=== PATIENT | male | born 1970 | race Caucasian/White ===

== ENCOUNTER 2016-09-11 09:01 | Inpatient (IN) | payer BC, OTHER ==
[~2016-09-11] VITALS: Ht 185.4 cm; Wt 92.0 kg
[2016-09-11] VITALS (16 sets, daily range): BP systolic 133–161; BP diastolic 76–100; PULSE 62–97; RESP 14–20; Ht 185.4 cm; Wt 92.0 kg
[~2016-09-11 09:01] MED LIST: CEFAZOLIN 1 GM INJ ONE; EPHEDrine SULFATE 50 MG/5 ML SYG ONE; SUCCINYLCHOLINE CHLORIDE 100 MG/5 ML SYG IV ONE
[2016-09-11] MEDS ORDERED: PROPOFOL 20 ML ONE (09:20)
[2016-09-11] MEDS ORDERED: NEOSTIGMINE 3 MG/3 ML SYRINGE ONE (09:20)
[2016-09-11] MEDS ORDERED: MIDAZOLAM 1 MG/ML 2 ML INJ ONE ×2 (09:20→17:01)
[2016-09-11] MEDS ORDERED: ROCURONIUM 50 MG INJ ONE (09:20)
[2016-09-11] MEDS ORDERED: GLYCOPYRROLATE 1 MG INJ ONE (09:20)
[2016-09-11] MEDS ORDERED: LIDOCAINE 2% (SDV) 5 ML INJ ONE (09:20)
[2016-09-11] MEDS ORDERED: FENTAnyl 50 MCG/ML VIAL ONE ×2 (09:20→17:33)
[2016-09-11] MEDS ORDERED: NALOXONE (0.4 MG/ML) INJ ONE (10:20)
--- NOTE | 2016-09-11 11:25 | HPN ---
Date/Time of Note Date/Time of Note DATE: 09/11/16 TIME: 11:25 Interval H&P Admission Note Pt. seen H&P reviewed: No system changes ( ) COLLIN PHILLIPS MD Sep 11, 2016 11:25
[2016-09-11] MEDS ORDERED: CEFAZOLIN 2 GM/50 ML (PMX) 50 ML IVPB SCH (11:30)
[2016-09-11] MEDS ORDERED: LACTATED RINGER'S 1,000 ML IV* SCH (11:30)
[2016-09-11] MEDS ORDERED: BUPIVACAINE 0.25%/EPI (SDV) 30 ML INJ ONE (11:52)
[2016-09-11] MEDS ORDERED: GELATIN SIZE 100 SPONGE ONE (11:52)
[2016-09-11] MEDS ORDERED: BUPIVACAINE 0.25% (MPF) 30 ML INJ ONE (11:52)
[2016-09-11] MEDS ORDERED: THROMBIN 5000 UNIT VIAL ONE (11:53)
[2016-09-11] MEDS ORDERED: BUPIVACAINE 0.25%/EPI (SDV) 30 ML INJ INJ ONE (13:32)
[2016-09-11] MEDS ORDERED: ONDANSETRON 4 MG INJ ONE (13:39)
[2016-09-11] MEDS ORDERED: DEXAMETHASONE 4 MG/ML 1 ML INJ ONE (13:39)
[2016-09-11] MEDS ORDERED: SURGIFOAM POWDER 1 GM KIT ONE (14:33)
[2016-09-11] MEDS ORDERED: THROMBIN 5000 UNIT VIAL TOP ONE (14:43)
[2016-09-11] MEDS ORDERED: GABA-526 PO (17:07)
[2016-09-11] MEDS ORDERED: BACL10TA PO (17:07)
[2016-09-11] MEDS ORDERED: PROP20TA4 PO (17:07)
[2016-09-11] MEDS ORDERED: CLON1TAB3 PO (17:07)
[2016-09-11] MEDS ORDERED: SUMA100T4 PO (17:12)
[2016-09-11] MEDS ORDERED: TOPI-25 PO (17:12)
[2016-09-11] MEDS ORDERED: SERT100T PO (17:12)
[2016-09-11] MEDS ORDERED: ACETAMINOPHEN 325 MG TAB PO PRN (17:30)
[2016-09-11] MEDS ORDERED: HYDROCODONE/APAP (5/325) TAB PO PRN ×2 (17:30)
[2016-09-11] MEDS ORDERED: PROCHLORPERAZINE 10 MG TAB PO PRN (17:30)
[2016-09-11] MEDS ORDERED: NALOXONE (0.4 MG/ML) INJ IV PRN (17:30)
[2016-09-11] MEDS ORDERED: ONDANSETRON 4 MG INJ IV PRN ×2 (17:30→18:00)
[2016-09-11] MEDS: HYDROmorphONE 0.2 MG/ML PCA IV SCH (17:45)
--- NOTE | 2016-09-11 17:57 | OPPN ---
Date/Time of Note Date/Time of Note DATE: 09/11/16 TIME: 17:51 Operative/Procedure Note Pre-Operative Diagnosis C5-C6 HNP WITH SPINAL STENOSIS AND EARLY MYELOPATHY Post-Operative Diagnosis SAME Procedure 1. DISCECTOMY AND PREPARATION FOR INTERBODY FUSION, C5-C6 2. DECOMPRESSION OF SPINAL CANAL, C5-C6, AND BILATERAL FORAMINA 3. INSERTION OF 5 MM ALLOGRAFT MACHINED 4. SEGMENTAL ANTERIOR PLATE FIXATION, 23 MM PLATE AND 16 MM SCREWS x3 AND 5 MM SCREW X 1. 5. PLACEMENT OF SMALL HEMOVAC Surgeon: ROMAINE TAPIA MD Public Safety Director: COLLIN PHILLIPS MD Findings SPINAL STENOSIS, EXPECTED, WITH FREE FRAGMENT OF DISC, LATERALLY, C5-C6, VERY TIGHT SEGMENT, LARGELY IMMOBILE AND NOT AMENABLE TO ARTHROPLASTY Blood Usage/Administration NONE Implants/Grafts 5 MM MACHINED ALLOGRAFT 23 MM PLATE, 4 SCREWS, 16 MM X3 AND 15 MM x1 SMALL HEMOVAC Estimated blood loss: 10 - 50 ml's Drains SMALL HEMOVAC Specimens DISC, C5-C6 Complications: None Anesthesia type: general ROMAINE TAPIA MD Sep 11, 2016 17:57
[2016-09-11] MEDS ORDERED: OXYCODONE/ACETAMINOPHEN (5/325) TAB PO PRN ×2 (18:00)
[2016-09-11] MEDS ORDERED: MIDAZOLAM 1 MG/ML 2 ML INJ IV PRN (18:00)
[2016-09-11] MEDS ORDERED: LABETALOL HCL 20MG INJ IV PRN (18:00)
[2016-09-11] MEDS: CEFAZOLIN 1 GM/50 ML (PMX) 50 ML IVPB SCH ×2 (18:00→23:28)
[2016-09-11] MEDS ORDERED: MEPERIDINE 25 MG INJ IV PRN (18:00)
[2016-09-11] MEDS ORDERED: HYDROmorphONE (0.2 MG/ML) 10ML SYG IV PRN ×2 (18:00)
[2016-09-11] MEDS ORDERED: FENTAnyl 50 MCG/ML VIAL IV PRN ×2 (18:00)
[2016-09-11] MEDS ORDERED: hydrALAzine 20 MG INJ IV PRN (18:00)
[2016-09-11] MEDS ORDERED: ATROPINE 1 MG/10 ML SYRINGE IV PRN (18:00)
[2016-09-11] MEDS: HYDROmorphONE (0.2 MG/ML) 10ML SYG IV PRN ×3 (18:00→18:15)
[2016-09-11] MEDS ORDERED: EPHEDrine SULFATE 50 MG/5 ML SYG IV PRN (18:00)
[2016-09-11] MEDS ORDERED: DIPHENHYDRAMINE 50 MG INJ IV PRN (18:00)
[2016-09-11] MEDS ORDERED: morphine (1 MG/ML) 10ML SYRINGE IV PRN ×3 (18:00)
[2016-09-11 18:28] LABS: ADD UMIC YES; URINE BILIRUBIN (Dip) NEGATIVE (NEGATIVE); URINE BLOOD (Dip) 1+ (NEGATIVE); URINE COLOR LT. YELLOW (YELLOW); URINE GLUCOSE (Dip) NEGATIVE (NEGATIVE); URINE KETONES (Dip) NEGATIVE (NEGATIVE); URINE LEUKOCYTE ESTERASE (Dip) NEGATIVE (NEGATIVE); URINE NITRITE (Dip) NEGATIVE (NEGATIVE); URINE TOTAL PROTEIN (Dip) NEGATIVE (NEGATIVE); URINE UROBILINOGEN (Dip) 0.2 E.U./dL (0.1-1.0)
[2016-09-11 18:56] LABS: SQUAMOUS EPITHELIAL CELL,UR RARE
--- NOTE | 2016-09-11 19:03 | RADRPT ---
PROCEDURE: Intraoperative imaging of the cervical spine with fluoroscopy. CLINICAL INDICATION: Neck pain. Intraoperative. TECHNIQUE: 16 images of the cervical spine were obtained in the operating room with an image inten sifier. No radiologist was in attendance. 35.9 seconds of fluoroscopy time was used. COMPARISON: No prior study is available for comparison. FINDINGS: Surgical instruments are noted overlying the cervical spine. Final images demonstrate anterior fusi on with plate and screws at C5-6. Intervertebral disk spacer is also present at C5-6. IMPRESSION: 1. Intraoperative imaging of the cervical spine. RPTAT: QQ .Frankie Colon MD, MD Date Time Electronically viewed and signed by .Frankie Colon MD, on 09/11/2016 19:02 .R/
--- NOTE | 2016-09-11 19:06 | OPR ---
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 OPERATION PERFORMED: 1. Anterior cervical diskectomy with preparation of disk for interbody fusion. 2. Decompression of spinal canal including division and removal of posterior longitudinal ligament and 2 A. Bilateral foraminotomies, C5-C6 3. Insertion of 5 mm machined allograft. 4. Segmental fixation with 23 mm anterior plate with 16 mm screws x3 and 15 mm screw x1. 5. Placement of small Hemovac. 6. Continuous use of microscope. 7. Use of fluoroscopy for localization of level and hardware placement. 8. Use continuous use of spinal monitoring. SURGEON: Ricky Arora MD LIQUID CHLORINE OPERATOR: Ian Fairbanks MD FINDINGS: Spinal stenosis as expected with large free fragment of disk laterally on the left at C5-C6. DESCRIPTION OF PROCEDURE: The patient was identified in the holding unit. His questions were answered. The surgical site was marked. He was taken to the operating room and given a general endotracheal anesthetic. A bolster was placed under his shoulders, and a small donut was placed under his head. His arms were taped into position, and spinal monitoring was instituted. Appropriate lines had been placed. The neck area was then prepped, and a marker x-ray was taken to localize the C5-C6 interspace. A 1-1/2 inch incision was made over the C5-C6 interspace following instillation of Marcaine with epinephrine into the skin. Platysma was divided with electrocautery. The deep cervical fascia was isolated and divided. The sternomastoid muscle was retracted laterally, and the visceral bundle of the neck was retracted medially. The esophageal tube had been placed for safety. The longissimus coli muscles were visualized and retracted laterally on each side. A marker x- ray was taken to localize the level of C5-C6. The disk was then incised sharply. Curettes were used to remove the disk down to the endplate above and below and to the back of the disk space. This was done under high-power magnification. A matchstick bur was then used to trim posteriorly back to the edges of the vertebrae. The annulus at the most posterior portion was removed piecemeal using curettes and 1 mm and 2 mm Kerrison punches. Osteophytic bone screws were then removed using Kerrison punches. The posterior longitudinal ligament was visualized and divided. Each foramen was visualized, and using 1 mm and 2 mm Kerrisons, bony enlargement was performed. Additional material was removed from the foraminal area using 4-0 curved curettes. A matchstick bur was then used to tailor the endplates to 5 mm. I need to mention that pins were inserted into the bodies of C5 and C6 at the beginning of the procedure in order to distract using the Guinda distractor. This segment was very rigid and barely distracted using the Guinda distractor, however. Following the removal of all soft tissues, additional tension was placed on the Guinda retractor, and no additional distraction was obtained. The machined endplates were then enlarged only to 5 mm. We didn't want to enlarge them more for fear of taking the endplates off entirely. A 5 mm graft was then inserted under image intensification. A 23 mm plate was then put into place, and 4 screws were inserted using image intensification. Sixteen millimeter screws were inserted on the C6, and on the left side at C5, a 15 mm rescue screw was used on that side because there was a question about whether a hole for a trial pin would require a larger rescue screw. This was to err on the side of extreme caution. X-rays were then taken in 2 planes. Bipolar was then used to control small amounts of oozing. The wound was irrigated copiously. A small Hemovac was brought out through a separate stab wound. Blood loss was less than 50 mL. We were told that the sponge and needle counts were correct. Spinal monitoring improved to near normal at C5 and C6 bilaterally. Image intensification and high-powered microscope were used throughout. The patient tolerated the procedure well, was extubated and taken to the recovery room in satisfactory condition, breathing spontaneously. Dictated By: RICKY ATKINS/LAUREN Conf#: [id number] DID#: [id number] YOEL
[2016-09-11] MEDS: DEXTROSE 5%-0.45% NACL 1,000 ML IV SCH (20:55)
[2016-09-11] MEDS: PROPRANOLOL 40 MG TAB PO SCH (23:26)
[2016-09-12 00:45] VITALS: BP 128/65; PULSE 98; RESP 18
[2016-09-12] MEDS: DEXTROSE 5%-0.45% NACL 1,000 ML IV SCH ×4 (03:15→23:28)
[2016-09-12 05:32] VITALS: BP 137/69; PULSE 65; RESP 18
[2016-09-12] MEDS: CEFAZOLIN 1 GM/50 ML (PMX) 50 ML IVPB SCH ×2 (05:58→11:53)
[2016-09-12 06:03] LABS: POTASSIUM 3.7 mmol/L (3.5-5.1)
[2016-09-12 06:06] LABS: CREATININE 0.95 mg/dl (0.61-1.24); HEMATOCRIT 40.8 % (42.0-52.0); HEMOGLOBIN 13.7 g/dl (14.0-18.0)
[2016-09-12 06:07] LABS: CALCIUM 8.2 mg/dl (8.4-10.2)
[2016-09-12 08:18] VITALS: BP 107/60; RESP 18
[2016-09-12] MEDS ORDERED: INFLUENZA VIRUS VACCINE 0.5 ML (DISPENSING) IM* ONE (09:00)
[2016-09-12] MEDS: PROPRANOLOL 40 MG TAB PO SCH ×2 (09:00→21:00)
[2016-09-12 19:00] VITALS: BP 110/60; RESP 19
--- NOTE | 2016-09-12 19:11 | EN ---
Date/Time of Note Date/Time of Note DATE: 09/12/16 TIME: 19:06 Event Note Surgery Surgery Event Note POD 1 ORS STAFF Seen this AM and at ~ 1400. S: C/O sore throat this AM with hoarseness. This resolved with coughing up phlegm. In better spirits this afternoon, and improving. O: Drainage minimal in hemovac. Upper extremity sensory and motor is normal. DTRs in lowers have returned to normal from pre-op clonus. Dressing is dry. Phonation is near normal. A: Satisfactory post op course. P: D/C on 09/13/16. Follow in [place] office. Soft collar. Diet as tolerated. Ambulatory but must use soft collar when up and avoid strenous activity. Keep wound dry and dressed x 72 hours from today. May shower after that. ROMAINE TAPIA MD Sep 12, 2016 19:11
[2016-09-12] MEDS: HYDROmorphONE 0.2 MG/ML PCA IV SCH (23:35)
[2016-09-13 08:11] VITALS: BP 121/78; RESP 18
[2016-09-13] MEDS: PROPRANOLOL 40 MG TAB PO SCH (08:46)
== END 2016-09-13 10:05 | disposition home or self-care (01) | DRG 473 ==
LOC: SDS 09:01 → EDSTATUS 11:30 → SDS 17:19 → MS1 17:19
PROVIDERS: ADMIT Specialist; ATTEND Specialist
PROC: 0RB30ZZ Excision of Cervical Vertebral Disc, Open Approach (ICD-10-PCS; 2016-09-11)
PROC: 0RG10K0 Fusion of Cervical Vertebral Joint with Nonautologous Tissue Substitute, Anterior Approach, Anterior Column, Open Approach (ICD-10-PCS; principal; 2016-09-11 11:30)
DX: M50.022 Cervical disc disorder at C5-C6 level with myelopathy (principal); M48.02 Spinal stenosis, cervical region
CPT/HCPCS: 72040; 80048; 81001; 81003; 85014; 85018; 87086; 90686; 97116; 97162; 97530; J0330; J0690; J1100; J1170; J1644; J2250; J2310; J2405; J2710; J3010; J7042